=== PATIENT | male | born 1985 | race Caucasian/White ===

== ENCOUNTER 2021-05-02 07:36 | Emergency (ER) | payer SELFPAY ==
--- NOTE | 2021-05-02 08:23 | EDM.PDOC ---
ED HPI GENERAL MEDICAL PROBLEM - General Chief Complaint: ENT Problem Stated Complaint: TOOTHACHE Time Seen by Provider: 05/02/21 08:06 Source of Information: Reports: Patient History Limitations: Reports: No Limitations - History of Present Illness INITIAL COMMENTS - FREE TEXT/NARRATIVE: 35-year-old male with significant dental decay, especially the upper maxillary canine and molars. He has a senior brand manager that is taking him to the emergency dental center tomorrow, he is already on hydrocodone for chronic pain. He is new to the area, has been here for 1 week. He is type II diabetic now on insulin, he moved up to this area because he was having trouble with methamphetamine and a failed marriage so moved to get a "fresh start". He admits he is on a pain contract with his Lortab with a physician in [place]. He has already agreed to start working at 2 separate places. Onset: Gradual Duration: Chronic, Waxing/Waning Location: Reports: Other (Right maxillary molars) Oral/Mouth Pain Score (Numeric/FACES): 10 - Related Data Allergies Allergy/AdvReac Type Severity Reaction Status Date / Time aspirin Allergy Swelling Verified 05/02/21 07:55 codeine Allergy Hives Verified 05/02/21 07:55 Home Meds: Home Meds Glimepiride 4 mg PO DAILY 05/02/21 [History] Hydrocodone/Acetaminophen [Lortab 10 mg-300 mg/15 ml Elxr] 10 mg PO TID 05/02/21 [History] Insulin Glarg,Human.Rec.Analog [Lantus Solostar] 25 unit SUBCUT BEDTIME 05/02/21 [History] Pregabalin [Lyrica] 150 mg PO DAILY 05/02/21 [History] buPROPion [Wellbutrin SR] 150 mg PO DAILY 05/02/21 [History] clonazePAM [Clonazepam] 1 mg PO BID PRN 05/02/21 [History] lisinopriL [Lisinopril] 5 mg PO DAILY 05/02/21 [History] Past Medical History HEENT History: Reports: Impaired Vision Cardiovascular History: Reports: Hypertension Respiratory History: Reports: None Gastrointestinal History: Reports: Cholelithiasis, GERD Genitourinary History: Reports: None Musculoskeletal History: Reports: Fracture, Fibromyalgia Neurological History: Reports: Brain Injury, Concussion, Migraines, Neuropathy, Diabetic, Neuropathy, Peripheral, Seizure Other Neuro History: TBI Psychiatric History: Reports: ADHD, Addiction, Anxiety, Depression, Panic Attack, Psych Hospitalization(s), PTSD, Suicide Attempt, Suicidal Ideation Endocrine/Metabolic History: Reports: Diabetes, Type II Hematologic History: Reports: None Oncologic (Cancer) History: Reports: None - Infectious Disease History Infectious Disease History: Reports: Chicken Pox - Past Surgical History Head Surgeries/Procedures: Reports: None GI Surgical History: Reports: Cholecystectomy Social & Family History - Tobacco Use Tobacco Use Status *Q: Current Every Day Tobacco User Years of Tobacco use: 28 Packs/Tins Daily: 2 - Caffeine Use Caffeine Use: Reports: Coffee, Energy Drinks, Soda, Tea - Recreational Drug Use Recreational Drug Use: Yes Recreational Drug Type: Reports: Marijuana/Hashish, Methamphetamine Recreational Drug Use Frequency: Daily ED ROS ENT - Review of Systems Review Of Systems: See Below Constitutional: Denies: Fever, Chills HEENT: Reports: Dental Pain Respiratory: Denies: Shortness of Breath Cardiovascular: Denies: Chest Pain GI/Abdominal: Denies: Nausea, Vomiting Skin: Denies: Erythema (No erythema or swelling over the right jaw) Neurological: Reports: Headache ED EXAM, ENT - Physical Exam Exam: See Below Exam Limited By: No Limitations General Appearance: Alert, No Apparent Distress Mouth/Throat: Other (Scattered deep decay of several teeth diffusely, the second molar of the right maxilla has erosion deep into the gum especially on the inside of the tooth. It is tender to percussion, there is no significant surrounding erythema or swelling) Respiratory/Chest: No Respiratory Distress Neurological: Alert, Oriented Psychiatric: Depressed Mood Skin: Warm, Dry Course - Vital Signs Last Recorded V/S: Last Vital Signs Temp 98.4 F 05/02/21 07:47 Pulse 92 05/02/21 07:47 Resp 16 05/02/21 07:47 BP 141/71 H 05/02/21 07:47 Pulse Ox 97 05/02/21 07:47 - Re-Assessments/Exams Free Text/Narrative Re-Assessment/Exam: 05/02/21 08:21 Patient was started on penicillin VK 500 mg 4 times a day, given 20 doses of 10 mg Toradol to take every 6 hours and encouraged to use this instead of ibuprofen. Hopefully the dentist can give him more definitive care tomorrow. Departure - Departure Time of Disposition: 08:25 Disposition: Home, Self-Care 01 Clinical Impression: Pain due to dental caries - Discharge Information Instructions: Dental Caries, Adult Referrals: PCP,None [Primary Care Provider] - Forms: ED Department Discharge Care Plan Goals: Take ketorolac every 6 hours and penicillin 4 times a day. Continue with your hydrocodone is needed for extra pain control. Recheck tomorrow with the dentist as planned. Sepsis Event Note (ED) - Evaluation Sepsis Screening Result: No Definite Risk - Focused Exam Vital Signs: Vital Signs Temp Pulse Resp BP Pulse Ox 05/02/21 07:47 98.4 F 92 16 141/71 H 97
== END 2021-05-02 08:29 | disposition home or self-care (01) ==
LOC: JP.ED 07:36
DX: K02.9 Dental caries, unspecified (principal); I10 Essential (primary) hypertension; E11.42 Type 2 diabetes mellitus with diabetic polyneuropathy; Z72.0 Tobacco use; Z88.8 Allergy status to other drugs, medicaments and biological substances; Z88.5 Allergy status to narcotic agent; Z79.4 Long term (current) use of insulin; Z79.899 Other long term (current) drug therapy
CPT/HCPCS: 99282

== ENCOUNTER 2021-05-05 10:29 | Emergency (ER) | payer SELFPAY ==
[2021-05-05] MEDS ORDERED: Ketorolac 30 MG/ML SDV IM ONE (11:32)
--- NOTE | 2021-05-05 11:35 | EDM.PDOC ---
ED HPI GENERAL MEDICAL PROBLEM - General Chief Complaint: ENT Problem Stated Complaint: TEETH PAIN Time Seen by Provider: 05/05/21 11:27 Source of Information: Reports: Patient, Old Records, RN Notes Reviewed History Limitations: Reports: No Limitations - History of Present Illness INITIAL COMMENTS - FREE TEXT/NARRATIVE: 35-year-old gentleman presents emergency department day complaint of dental pain, he is set up to see an oral surgeon in 2weeks was in the emergency department 2 days prior started on antibiotics and Toradol unfortunately he has not filled this medication. He does admit to daily methamphetamine use. Right Upper Oral/Mouth Pain Score (Numeric/FACES): 10 - Related Data Allergies Allergy/AdvReac Type Severity Reaction Status Date / Time aspirin Allergy Swelling Verified 05/05/21 11:07 codeine Allergy Hives Verified 05/05/21 11:07 Home Meds: Home Meds Glimepiride 4 mg PO DAILY 05/02/21 [History] Hydrocodone/Acetaminophen [Lortab 10 mg-300 mg/15 ml Elxr] 10 mg PO TID 05/02/21 [History] Insulin Glarg,Human.Rec.Analog [Lantus Solostar] 25 unit SUBCUT BEDTIME 05/02/21 [History] Pregabalin [Lyrica] 150 mg PO DAILY 05/02/21 [History] buPROPion [Wellbutrin SR] 150 mg PO DAILY 05/02/21 [History] clonazePAM [Clonazepam] 1 mg PO BID PRN 05/02/21 [History] lisinopriL [Lisinopril] 5 mg PO DAILY 05/02/21 [History] Past Medical History HEENT History: Reports: Impaired Vision Cardiovascular History: Reports: Hypertension Respiratory History: Reports: None Gastrointestinal History: Reports: Cholelithiasis, GERD Genitourinary History: Reports: None Musculoskeletal History: Reports: Fracture, Fibromyalgia Neurological History: Reports: Brain Injury, Concussion, Migraines, Neuropathy, Diabetic, Neuropathy, Peripheral, Seizure Other Neuro History: TBI Psychiatric History: Reports: ADHD, Addiction, Anxiety, Depression, Panic Attack, Psych Hospitalization(s), PTSD, Suicide Attempt, Suicidal Ideation Endocrine/Metabolic History: Reports: Diabetes, Type II Hematologic History: Reports: None Oncologic (Cancer) History: Reports: None - Infectious Disease History Infectious Disease History: Reports: Chicken Pox - Past Surgical History Head Surgeries/Procedures: Reports: None GI Surgical History: Reports: Cholecystectomy Social & Family History - Tobacco Use Tobacco Use Status *Q: Current Every Day Tobacco User Years of Tobacco use: 28 Packs/Tins Daily: 0.5 - Caffeine Use Caffeine Use: Reports: Coffee, Energy Drinks, Soda, Tea - Recreational Drug Use Recreational Drug Use: Yes Recreational Drug Type: Reports: Marijuana/Hashish, Methamphetamine Recreational Drug Use Frequency: Daily ED ROS ENT - Review of Systems Review Of Systems: See Below HEENT: Reports: Dental Pain ED EXAM, ENT - Physical Exam Exam: See Below Text/Narrative:: Mouth mucosa is moist and pink no erythema exudate known soft palate tongue is midline uvula is midline tooth #4 and 1 are broken there is tenderness to this area Exam Limited By: No Limitations General Appearance: Alert, WD/WN, No Apparent Distress Respiratory/Chest: No Respiratory Distress Course - Vital Signs Last Recorded V/S: Last Vital Signs Temp 95.4 F L 05/05/21 11:09 Pulse 81 05/05/21 11:09 Resp 18 05/05/21 11:09 BP 143/86 H 05/05/21 11:09 Pulse Ox 95 05/05/21 11:09 - Orders/Labs/Meds Orders: Active Orders 24 hr Category Date Time Status Ketorolac [Toradol] Med 05/05/21 11:32 Once 30 mg IM ONETIME ONE Departure - Departure Time of Disposition: 11:34 Disposition: Home, Self-Care 01 Condition: Fair Clinical Impression: Pain due to dental caries, Dental abscess - Discharge Information Instructions: Dental Abscess Referrals: PCP,None [Primary Care Provider] - Additional Instructions: Take full course of antibiotics, continue with Tylenol as before supplement with Toradol, please keep your follow-up appointment with dentistry Sepsis Event Note (ED) - Evaluation Sepsis Screening Result: No Definite Risk - Focused Exam Vital Signs: Vital Signs Temp Pulse Resp BP Pulse Ox 05/05/21 11:09 95.4 F L 81 18 143/86 H 95 - My Orders Last 24 Hours: My Active Orders 05/05/21 11:32 Ketorolac [Toradol] 30 mg IM ONETIME ONE - Assessment/Plan Last 24 Hours: My Active Orders 05/05/21 11:32 Ketorolac [Toradol] 30 mg IM ONETIME ONE Plan: Assessment Acuity = acute Site and laterality = dental abscess tooth #4 Etiology = dental caries Manifestations = pain Location of injury = Home Lab values = none Plan Refill the prescriptions originally prescribed 2 days prior Toradol 10 mg 1 tab p.o. 3 times daily as needed total #20 and Pen-Vee K 500 mg p.o. 4 times daily x7 days This note was dictated using [employer] voice recognition software please call with any questions on syntax or grammar.
== END 2021-05-05 12:12 | disposition home or self-care (01) ==
LOC: JP.ED 10:29
DX: K04.7 Periapical abscess without sinus (principal); K02.9 Dental caries, unspecified; I10 Essential (primary) hypertension; E11.42 Type 2 diabetes mellitus with diabetic polyneuropathy; Z72.0 Tobacco use; Z88.5 Allergy status to narcotic agent; Z88.8 Allergy status to other drugs, medicaments and biological substances; Z79.4 Long term (current) use of insulin; Z79.899 Other long term (current) drug therapy
CPT/HCPCS: 96372; 99282; J1885; 99283